=== PATIENT | female | born 1945 ===

== ENCOUNTER → 2016-10-06 | Day surgery (SDC) | payer MEDICARE, MEDICAID ==
--- NOTE | 2016-10-04 10:43 | Opthalmology H&P ---
Ophthalmology H&P H&P Chief Complaint: decreased vision in right eye HPI Vision Affects Ability to: read, focus/use eyes together HPI Narrative blurry vision Exam Visual Acuity: OD: CF OS: 20/60 Tension: OD: 15 OS; 14 Eye Exam: normal OU: anterior chambers, corneas, external exam, fundus exam, levator function, marginal reflex distance, palpebral fissure-width, findings: lens - OD: ns OS; ns Assessment/Plan Diagnosis: (1) Cataract Treatment Plan: cataract extraction w/ lens implant Goals of Treatment: improvement of vision, enhance quality of life Attestation Attestation The risks and benefits of the surgery as well as alternative procedures were explained to the patient in detail. VALDEMAR SHELDON Oct 04, 2016 10:43
[2016-10-04 11:38] LABS: EOSINOPHILS % (AUTO) 8.7 % (0.0-3.0); LYMPHOCYTES % (AUTO) 30.5 % (20.0-45.0); MEAN CORPUSCULAR HEMOGLOBIN 21.7 PG (27.0-31.0); MEAN CORPUSCULAR HGB CONC 29.6 G/DL (32.0-36.0); MEAN CORPUSCULAR VOLUME 73 FL (80-99); MEAN PLATELET VOLUME 6.5 FL (6.5-10.1); MONOCYTES % (AUTO) 7.7 % (1.0-10.0); NEUTROPHILS % (AUTO) 52.1 % (45.0-75.0); PLATELET COUNT 595 K/UL (150-450); RED BLOOD COUNT 4.79 M/UL (4.20-5.40); RED CELL DISTRIBUTION WIDTH 16.4 % (11.6-14.8)
[2016-10-04 11:47] LABS: PROTHROMBIN TIME 9.9 SEC (9.30-11.50)
[2016-10-04 11:50] LABS: ANION GAP 19 (5-15); CALCIUM 9.5 mg/dL (8.6-10.2); CARBON DIOXIDE 22 mEQ/L (20-30); CHLORIDE 98 mEQ/L (98-107); HEMOLYSIS 1; POTASSIUM 4.5 mEQ/L (3.4-4.9); SODIUM 139 mEQ/L (135-145)
--- NOTE | 2016-10-04 15:27 | Pre-Procedure Note/Attestation ---
Pre-Procedure Note/Attestation Complete Prior to Procedure Planned Procedure: right Procedure Narrative: phaco with IOL Indications for Procedure Pre-Operative Diagnosis: Cataract Attestation I attest that I discussed the nature of the procedure; its benefits; risks and complications; and alternatives (and the risks and benefits of such alternatives ), prior to the procedure, with the patient (or the patient's legal tax compliance representative). I attest that, if there was a reasonable possibility of needing a blood transfusion, the patient (or the patient's legal tax compliance representative) was given the [facility] standardized written summary, pursuant to the Bart Hugo Blood Safety Act ([place] Health and Safety Code # 1645, as amended). I attest that I re-evaluated the patient just prior to the surgery and that there has been no change in the patient's H&P, except as documented below: VALDEMAR SHELDON Oct 04, 2016 15:27
--- NOTE | 2016-10-05 16:37 | Pre-op HX & Phy Repo 2 SIG ---
DATE OF ADMISSION: 10/06/2016 REASON FOR EVALUATION: I was asked by Dr. Higinio Coyle to see this 71-year-old female, who is going for elective surgery on 10/06/2016 on the right eye. The patient has a cataract right eye. Please see full ophthalmology history and physical by Dr. Higinio Coyle. The patient was evaluated. Chart was reviewed. Some information obtained through the daughter alone because of the patient's Bengali is limited. PAST MEDICAL HISTORY/REVIEW OF SYSTEMS: Remarkable for hypertension, history of stroke 20 years ago, left hemiplegia, history of type 2 diabetes mellitus, history of osteoporosis and osteoarthritis, peripheral diabetic neuropathy, history of myocardial infarction approximately 20 years ago. Denies history of respiratory problem. No asthma or bronchitis. No fevers. No thyroid problem. The patient has gastroesophageal reflux disease, no renal failure. PAST SURGICAL HISTORY: The patient has a left humerus fracture and successful fracture stabilization, left ankle fracture and surgery, the patient using a cane and walker for ambulation, left arm in sling. ALLERGIES: Not known. PRESENT MEDICATIONS: Include Benicar, tramadol, , metformin, metoprolol, Nexium, glucosamine. HABITS: The patient denies tobacco use. Drank 20 years ago, stopped. No street drug use. FAMILY HISTORY: Father from heart attack. Mother and brother has a cancer. PHYSICAL EXAMINATION: GENERAL:: The patient is small framed female, alert. VITAL SIGNS: Blood pressure 150/77, temperature 98.8, pulse 96, respirations 18, and O2 saturation 97% on room air. HEENT: Head, normocephalic. Ears, clear. No discharge. Eyes, full description per Dr. Higinio Coyle. Mouth, absent teeth. No dentures. NECK: Supple. No jugular venous distention. Carotid artery +2. Trachea midline. CHEST: Mild kyphosis. LUNGS: Clear. No rales or rhonchi. HEART: Sinus rhythm. No ectopy. No murmur. No S3 or S4. ABDOMEN: Soft. Liver and spleen not enlarged. No rebound. EXTREMITIES: . SKIN: Dry and pale. No rashes or warmth. LYMPHATICS: Lymph nodes not enlarged. CENTRAL NERVOUS SYSTEM: Left hemiplegia and peripheral diabetic neuropathy of the feet. No nystagmus or tremor. LABORATORY AND DIAGNOSTIC DATA: Electrocardiogram sinus rhythm with occasional premature ventricular contractions, right bundle-branch block. White blood cells 11,000, hemoglobin 10.4, hematocrit 35.2%. Sodium 139, potassium 4.5, chloride 98, BUN 9, creatinine 1.0. Calcium 9.5. Blood sugar 129. IMPRESSION: 1. Cataract, right eye. 2. Hypertension, controlled. 3. History of myocardial infarction 20 years ago. 4. Premature ventricular contractions and right bundle-branch block on EKG. 5. Diabetes mellitus type 2. 6. Anemia. PLAN: Cataract extraction, right eye with intraocular lens implant per Dr. Higinio Coyle. CONCLUSION: The patient's vital signs stable. Blood sugar 160. ECG with premature ventricular contraction and right bundle-branch block. The patient otherwise to be NPO after midnight on day of surgery 10/06/2016. The patient's condition optimized for surgery. Merly Obrien M.D. DR: Jamaal JOB#: [id number] CC:
[~2016-10-06] VITALS: Ht 157.5 cm; Wt 73.5 kg
[2016-10-06] VITALS (11 sets, daily range): BP systolic 122–154; BP diastolic 51–88
[~2016-10-06] MED LIST: Akten 3.5% 1ml Btl RIGHT EYE ONE; BENICAR40 MG ORAL; BSS 15ml BTL ONE; BSS 500ml btl ONE; EPINEPHrine 1mg/1ml Amp ONE; Hydromorphone 0.5mg/0.5ml inj IVP PRN; LYRICA75 M1 ORAL; METFORMIN HCL1000 M1 ORAL; Maxitrol Opth Oint 3.5gm ONE; Midazolam 2mg/2ml Inj ONE; NEXIUM20 MG ORAL; NORVASC2.5 MG ORAL; NS Irrig 1000ml ONE; Povidone-Iodine 5% opth solution ONE; Pred Forte 1% Opth Susp 1ml ONE; Sodium Hyaluronate 14 mg/ml 0.85ml ONE; Sterile Water Irrig 1000ml IRRIG ONE; TRAMADOL HCL50 MG ORAL; ZOLPIDEM TARTRA10 MG ORAL; fentaNYL 100 mcg/2 mL IV ONE
[2016-10-06] MEDS: Cyclopentolate 1% Opth Sol RIGHT EYE SCH ×3 (07:09→07:26)
[2016-10-06] MEDS: Diclofenac Sod 0.1% Op Soln RIGHT EYE SCH ×3 (07:09→07:26)
[2016-10-06] MEDS: Phenylephrine 10% Opth Soln 5ml RIGHT EYE SCH ×3 (07:10→07:27)
[2016-10-06] MEDS: Tropicamide 1% Opth Soln RIGHT EYE SCH ×3 (07:10→07:27)
--- NOTE | 2016-10-06 08:43 | Anethesia Preoperative Eval ---
Anesthesia Pre-op PMH/ROS General Date of Evaluation: Oct 06, 2016 Time of Evaluation: 08:10 Anesthesiologist: ranjeet ASA Score: ASA 3 Mallampati Score Class I : Soft palate, uvula, fauces, pillars visible Class II: Soft palate, uvula, fauces visible Class III: Soft palate, base of uvula visible Class IV: Only hard plate visible Mallampati Classification: Class II Surgeon: PITO Diagnosis: CATARACT Surgical Procedure: REMOVAL AND LENS IMPLANT R Anesthesia History: none Family History: no anesthesia problems Allergies: Coded Allergies: No Known Allergies (Unverified , 10/04/16) Medications: see eMAR Past Medical History Cardiovascular: Reports: CAD, HTN, [place] Pulmonary: Denies: COPD, PILAR, asthma, other Gastrointestinal/Genitourinary: Denies: CRI, ESRD, GERD, other Neurologic/Psychiatric: Reports: CVA Endocrine: Reports: DM HEENT: Reports: cataract (R) Hematology/Immune: Denies: DVT, anemia, bleeding disorder, other Musculoskeletal/Integumentary: Denies: DDD, DJD, OA, RA, edema, other Anesthesia Pre-op Phys. Exam Physician Exam Last Vital Signs Date Time Temp Pulse Resp B/P Pulse Ox O2 Delivery O2 Flow Rate FiO2 10/06/16 07:33 98.2 82 20 151/65 96 Room Air Constitutional: NAD Neurologic: CN 2-12 intact Cardiovascular: RRR Respiratory: CTA Gastrointestinal: S/NT/ND Airway Exam Mallampati Score: Class II MO: full ROM: full Teeth: missing Dentures: no lower, no upper Anesthesia Pre-op A/P Risk Assessment & Plan Assessment: ASA 3 Plan: MAC Status Change Before Surgery: No Pre-Antibiotics Given Within 1 Hr of Incision: JERSON Silverman M.D. Oct 06, 2016 08:43
--- NOTE | 2016-10-06 08:45 | Immediate Post-Op Evaluation ---
Immediate Post-Op Evalulation Immediate Post-Op Evalulation Procedure: CATARACT REMOVAL IMPLANT LENS Date of Evaluation: Oct 06, 2016 Time of Evaluation: 09:00 IV Fluids: 500 Blood Products: 0 Estimated Blood Loss: 0 Urinary Output: 0 Blood Pressure Systolic: 155 Blood Pressure Diastolic: 88 Pulse Rate: 70 Respiratory Rate: 12 O2 Sat by Pulse Oximetry: 100 Temperature (Fahrenheit): 97.2 Pain Score (1-10): 1 Nausea: No Vomiting: No Complications O Patient Status: awake, patent, none Hydration Status: adequate Given Within 1 Hr of Incision: JERSON Silverman M.D. Oct 06, 2016 08:45
--- NOTE | 2016-10-06 08:46 | 48 Hour Post Anesthesia Eval ---
Post Anesthesia Evaluation Procedure: CATARACT REMOVAL IMPLANT LENS Date of Evaluation: Oct 06, 2016 Time of Evaluation: 11:05 Blood Pressure Systolic: 122 Pulse Rate: 76 Respiratory Rate: 11 Temperature (Fahrenheit): 98 O2 Sat by Pulse Oximetry: 100 Airway: patent Nausea: No Vomiting: No Hydration Status: adequate Mental Status/LOC: patient returned to baseline Follow-up care needed: ready to discharge JERSON WOOD M.D. Oct 06, 2016 08:46
--- NOTE | 2016-10-07 08:47 | Brief Operative Note ---
Immediate Post Operative Note Operative Note Chief Complaint: blurry vision Pre-op Diagnosis: Cataract Procedure: phaco with IOL Post-op Diagnosis: Pseudophakia Post-op Diagnosis: same as pre-op Findings: consistent w/pre-op dx studies Surgeon: Jonna Anesthesiologist: Kane Anesthesia: MAC Specimen: none Complications: none Condition: stable Estimated Blood Loss: none Drains: none Implant(s) used?: Yes VALDEMAR SHELDON Oct 07, 2016 08:47
--- NOTE | 2016-10-09 11:04 | Operative Note - PDOC ---
Operative Note Operative Note Date of Operation/Procedure: Oct 06, 2016 Chief Complaint: blurry vision Pre-op Diagnosis: Cataract Procedure: phaco with IOL Post-op Diagnosis: Pseudophakia Post-op Diagnosis: same as pre-op Operative Findings: consistent w/pre-op dx studies Surgeon: Jonna Anesthesiologist: Kane Anesthesia: MAC Specimen: none Complications: none Condition: stable Estimated Blood Loss: none Drains: none Implant(s) used?: Yes Indications for Procedure cataract Description of Procedure This patient has been complaining visually significant cataract in the affected eye with the best corrected visual acuity under moderate glare conditions worse. The patient complains of difficulties with glare in performing activities of daily living and wants to manage personal affairs with comfort and accuracy and see well enough to move with safety at home and outdoors. ~~~ The risks, benefits and alternatives of the procedure were discussed with the patient in the office prior to scheduling surgery. All questions from the patient were answered after the surgical procedure was explained in detail. The risks of the procedure as explained to the patient include, but are not limited to, pain, infection, bleeding, loss of vision, retinal detachment, need for further surgery, loss of lens nucleus, double vision, etc. Alternative procedures were discussed which include, to do nothing or seek a second opinion. Informed consent for this procedure was obtained from the patient. The patient was referred to a primary care physician for a cardiopulmonary clearance prior to surgery, after proper evaluation was done patient was properly scheduled for outpatient surgery. The patient was brought to the operating room where the anesthesiologist established I.V. lines and cardiac monitoring leads. Mild intravenous sedation was administered.~~ The patient was then prepared with a 5% solution of povidone -iodine to the conjunctival fornix and lashes, and a 10% solution of povidone- iodine to the lids and periorbital skin. The patient was then draped in the usual sterile fashion. A lid speculum was then placed in the operative eye. A keratome blade was then used to create a biplanar incision into the anterior chamber. Viscoelastics was then instilled into the anterior chamber. A capsulorrhexis was then fashioned with an utrata forceps. BSS and a cannula were then used to hydrodissect and hydro delineate the lens. Paracentesis incision was made at 3 o'clock with sharp blade. The phacoemulsification unit, after being properly adjusted~ and tested, was then used to emulsify the nucleus. Residual cortical material was aspirated with the irrigation and aspiration unit. Healon was then instilled into the anterior chamber. The corneal wound was then enlarged to the size of the optic with the karie keratome blade. The intraocular lens was then inspected for right~ power and size~ and thought to be satisfactory. Then the lens was gently placed in the capsular bag. Positioning within the capsular bag was confirmed by direct visualization. Optic centration was accomplished with a Sinskey hook. Viscoelastics~ was removed from the anterior chamber using the irrigation and aspiration unit. The corneal wound was then tested for leaks and none were found. The lid speculum were then removed. Sponge and needle counts were correct. An eye patch and shield were placed over the operative eye. The patient was taken to the recovery room in stable condition. There were no complications. The patient tolerated the procedure well. The patient was then transferred to the ambulatory surgery unit in stable and satisfactory condition , was given detailed written instructions and asked to follow up~ in the office the next day. ~ ~ Dictated & Transcribed: Perez Jenny PIMENTEL JAMES Oct 09, 2016 11:04
--- NOTE | 2016-10-13 12:52 | Cardiology Report ---
APPROVED REPORT EKG Measurement Heart [id number] Sinus rhythm with occasional premature ventricular complexes Right bundle branch block Abnormal ECG
== END | disposition home or self-care (01) ==
LOC: SUR 06:15
DX: H26.9 Unspecified cataract (principal); I10 Essential (primary) hypertension; I69.954 Hemiplegia and hemiparesis following unspecified cerebrovascular disease affecting left non-dominant side; E11.42 Type 2 diabetes mellitus with diabetic polyneuropathy; Z79.84 Long term (current) use of oral hypoglycemic drugs; I25.10 Atherosclerotic heart disease of native coronary artery without angina pectoris; I25.2 Old myocardial infarction; K21.9 Gastro-esophageal reflux disease without esophagitis; M81.0 Age-related osteoporosis without current pathological fracture; M19.90 Unspecified osteoarthritis, unspecified site; I45.10 Unspecified right bundle-branch block; I49.3 Ventricular premature depolarization; D64.9 Anemia, unspecified
CPT/HCPCS: 36415; 66984; 80048; 82962; 85025; 85610; 85730; 93005; J0171; J2250; J3010; J3370; V2632; 94003; 94150